=== PATIENT | female | born 1995 | race Caucasian/White ===

== ENCOUNTER 2022-11-07 13:44 | Outpatient (CLI) | payer OTHER, MEDICAID, SELFPAY ==
[2022-11-08 13:58] LABS: Albumin* 4.9 g/dL (3.3-5.0); Chloride* 103 mmol/L (96-114)
[2022-11-08 13:59] LABS: Potassium* 4.6 mmol/L (3.6-5.1); Sodium* 139 mmol/L (135-149)
[2022-11-08 14:01] LABS: Alanine Aminotransferase* 99 U/L (4-35); Alkaline Phosphatase* 112 U/L (40-150); Aspartate Amino Transferase* 48 U/L (12-35); Bilirubin Total* 0.4 mg/dL (0.1-1.5); Blood Urea Nitrogen* 14 mg/dL (5-24); Carbon Dioxide* 26 mmol/L (20-32); Creatinine* 0.7 mg/dL (0.5-1.5); Estimated Glomerular Filt Rate 123 ml/min; Glucose* 104 mg/dL (60-115); Lipase* 11 U/L (23-300); Total Protein* 8.1 g/dL (6.0-8.3)
[2022-11-08 14:02] LABS: Calcium* 9.4 mg/dL (8.4-10.6)
== END 2022-11-07 13:45 | disposition home or self-care (01) ==
PROVIDERS: PCP Physician Assistant Medical; Visit Provider Physician Assistant Medical
DX: K85.90 Acute pancreatitis without necrosis or infection, unspecified (principal); F41.8 Other specified anxiety disorders; R74.01 Elevation of levels of liver transaminase levels
CPT/HCPCS: 80053; 83690

== ENCOUNTER 2023-06-14 07:17 | Outpatient (CLI) | payer OTHER, MEDICAID, SELFPAY | END 2023-06-14 07:18 | disposition home or self-care (01) | PROVIDERS: PCP Physician Assistant Medical; Visit Provider Physician Assistant Medical | DX: E66.9 Obesity, unspecified (principal); E03.9 Hypothyroidism, unspecified; E78.1 Pure hyperglyceridemia; E05.90 Thyrotoxicosis, unspecified without thyrotoxic crisis or storm; R79.89 Other specified abnormal findings of blood chemistry | CPT/HCPCS: 80053; 80061; 84443 ==

== ENCOUNTER 2023-07-10 19:48 | Emergency (ER) | payer OTHER, MEDICAID, SELFPAY ==
[2023-07-10] VITALS (13 sets, daily range): BP systolic 112–128; BP diastolic 67–94; PULSE 87–124; RESP 26; TEMP 36.3; O2SAT 94–99; BMI 32.0
--- NOTE | 2023-07-10 20:23 | CRLHL7_ITS ---
For Patients: As a result of the Century Cures Act, medical imaging exams and procedure reports are released immediately into your electronic medical record. You may view this report before your referring provider. If you have questions, please contact your health care provider. INDICATION: Shortness of breath, D-dimer. TECHNIQUE: CT chest PE was acquired with 95 cc Isovue 370 IV contrast. COMPARISON: None. FINDINGS: Heart and vasculature: Contrast opacification of the pulmonary arterial tree is adequate. No sign of pulmonary embolism. Heart size is normal. Thoracic aorta and pulmonary artery are normal in caliber. Lungs and pleura: No suspicious nodules or infiltrates. No pleural effusions, pleural thickening, or pneumothorax. Lymph nodes/mediastinum: No mediastinal, hilar, or axillary adenopathy. Chest wall: No masses. Upper abdomen: Hepatic steatosis. No acute or significant findings. Bones: Unremarkable for age. IMPRESSION: No pulmonary embolism. No focal consolidations. Please note that all CT scans at this facility use dose modulation, iterative reconstruction, and/or weight-based dosing when appropriate to reduce radiation dose to as low as reasonably achievable. Dictated by Jason Pascal MD @ 07/10/2023 11:16:43 PM (Electronically Signed)
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
== END 2023-07-10 23:23 | disposition home or self-care (01) ==
PROVIDERS: Emergency Provider Emergency Medicine Emergency Medical Services; PCP Physician Assistant Medical
DX: R06.02 Shortness of breath (principal); F41.9 Anxiety disorder, unspecified
CPT/HCPCS: 36415; 71275; 84443; 84484; 93005; 94761; 99284; 99285; Q9967

== ENCOUNTER 2023-08-13 11:03 | Outpatient (CLI) | payer MEDICAID, SELFPAY ==
[2023-08-13 23:45] LABS: Chlamydia DNA Amplified* NOT DETECTED (No Detected); GC DNA Amplified* NOT DETECTED (No Detected)
== END 2023-08-13 11:04 | disposition home or self-care (01) ==
PROVIDERS: PCP Physician Assistant Medical; Visit Provider Physician Assistant
DX: Z11.3 Encounter for screening for infections with a predominantly sexual mode of transmission (principal)
CPT/HCPCS: 86592; 86703; 86803; 87340; 87491; 87591

== ENCOUNTER 2023-12-27 14:14 | Outpatient (CLI) | payer MEDICAID, SELFPAY | END 2023-12-27 14:15 | disposition home or self-care (01) | LOC: FRMREF 14:16 | PROVIDERS: PCP Physician Assistant Medical; Visit Provider Physician Assistant Medical | DX: E03.9 Hypothyroidism, unspecified (principal); R73.03 Prediabetes | CPT/HCPCS: 84443 ==

== ENCOUNTER 2024-04-23 13:25 | Outpatient (CLI) | payer MEDICAID, SELFPAY | END 2024-04-23 13:26 | disposition home or self-care (01) | LOC: FRMREF 13:26 | PROVIDERS: PCP Physician Assistant Medical; Visit Provider Physician Assistant Medical | DX: E03.9 Hypothyroidism, unspecified (principal) | CPT/HCPCS: 84443 ==